=== PATIENT | male | born 1950 | race Caucasian/White ===

== ENCOUNTER 2018-02-01 06:11 | Inpatient (IN) ==
--- NOTE | 2018-01-26 09:50 | Anesthesiology Consultation ---
Date of Service January 26, 2018 Assessment & Plan (1) Encounter for pre-operative examination: Chart Review Chart Review: Acceptable Risk for Surgery and Patient NOT seen in Pre Admission Testing History Surgery Operation Date: 02/01/18 08:25 Proposed Procedures p Video Mediastinoscopy; - Nickolas Zarate MD, FACS s Left Thoracotomy with Possible Sleeve Resection, Possible Pneumonectomy - Nickolas Zarate MD, FACS Height/Weight Height: 6 ft Weight: 83.915 kg Allergies Allergy/AdvReac Type Severity Reaction Status Date / Time cat dander Allergy Severe Verified 01/24/18 15:38 pollen extracts Allergy Mild Verified 01/24/18 15:38 Medications Home Medications Medication Instructions Recorded Confirmed Last Taken ipratropium-albuterol [Combivent 1 puff INHALATION Q6H PRN 12/24/17 01/24/18 05:00 Respimat] Past Medical History Medical History COPD (chronic obstructive pulmonary disease) Environmental allergies Left lower lobe pulmonary nodule Pneumonia 2017 had pneumonia - chest xray and ct done found abnormality Seasonal allergies Past Surgical History Surgical History Hx of tonsillectomy (Acute) History of bronchoscopy 1 mo ago - Bx done - found positive for cancer History of varicose vein stripping Social History Smoking Status: Former smoker Smoking End Date: 10 weeks ago Hx Alcohol Use: No Hx Substance Use: No Testing Electrocardiogram Date: 12/21/17 Findings: + NSR @ (93) Short SD interval. Nonspecific ST and T wave abnormality. Chest X-Ray Date: 12/20/17 (Chest CT) There is an obstructing lesion at the level of the distal left mainstem bronchus with encasement of left upper lobe bronchus and total obstruction of left lower lobe bronchus. Left lower lobe atelectasis with areas of dilated mucus filled bronchi, and area of necrosis within the left lower lobe which measures 3.6 x5.5 cm. Satellite nodules in the lower left lung. Mediastinal and hilar adenopathy. Pulmonary Function Test Date: 12/22/17 Moderate obstructive pattern. No significant change with bronchodilator. Flow volume loops consistent with spirometric findings. Lung volumes decreased TLC. Moderately reduced diffusion to 56% predicted. Laboratory Results 12/15/17 WBC: 13.89 H/H: 13.4/41.4 PLATELETS: 416 *surgeon aware of elevated WBC count
[~2018-02-01 06:11] MED LIST: LR 15ML/HR IV SCH
[2018-02-01] MEDS ORDERED: PROPOFOL IV EMULSION 10 MG/ML 20 ML VIAL IV ONE (07:46)
[2018-02-01] MEDS ORDERED: GLYCOPYRROLATE 0.2 MG/ML VIAL ONE (07:46)
[2018-02-01] MEDS ORDERED: MIDAZOLAM HCL 1 MG/ML 2ML VIAL ONE (07:46)
[2018-02-01] MEDS ORDERED: fentaNYL citrate 100 MCG/2 ML VIAL ONE ×3 (07:46→12:54)
[2018-02-01] MEDS ORDERED: LIDOCAINE HCL 2% 2 ML VIAL/AMP(20MG/ML) INFIL ONE (07:46)
[2018-02-01] MEDS ORDERED: DEXAMETHASONE SOD INJ 4 MG/ML VIAL ONE (07:46)
[2018-02-01] MEDS ORDERED: NEOSTIGMINE METHYLSULFATE 5 MG/5 ML SYR ONE (07:46)
[2018-02-01] MEDS ORDERED: ONDANSETRON INJ 2 MG/ML 2 ML VIAL ONE (07:46)
[2018-02-01] MEDS ORDERED: BUPIVACAINE 0.5 % 5 MG/1 ML MPF 30ML VIAL ONE (08:41)
--- NOTE | 2018-02-01 08:45 | History & Physical Bridge Note ---
Date of Service February 01, 2018 History & Physical Bridge Note I have examined the patient, reviewed the History & Physical and in the interval since the performance of the History & Physical I have noted the following changes of clinical significance: no changes noted
[2018-02-01] MEDS ORDERED: fentaNYL citrate 100 MCG/2 ML VIAL IV PRN (08:48)
[2018-02-01] MEDS ORDERED: HYDROmorphone INJ 1 MG/ML SYRINGE IV PRN (08:48)
[2018-02-01] MEDS ORDERED: ATROPINE SULFATE 0.1 MG/ML 5ML SYR IV PRN (08:48)
[2018-02-01] MEDS ORDERED: ePHEDrine sulfate 50 MG/ML AMP IV PRN (08:48)
[2018-02-01] MEDS ORDERED: ONDANSETRON INJ 2 MG/ML 2 ML VIAL IV PRN ×2 (08:48→16:07)
[2018-02-01] MEDS ORDERED: BUPIVACAINE LIPOSOME 1.3% 266 MG/20 ML VIAL INFIL ONE (09:04)
[2018-02-01] MEDS ORDERED: SODIUM CHLORIDE 0.9% INJ 10 ML VIAL ONE (09:04)
[2018-02-01] MEDS ORDERED: SODIUM CHLORIDE 0.9% PF 50 ML VIAL ONE (09:29)
[2018-02-01] MEDS ORDERED: CLINDAMYCIN PHOS 300 MG/2 ML VIAL ONE ×3 (10:14→11:33)
[2018-02-01] MEDS ORDERED: ROCURONIUM BROMIDE 10 MG/ML 5 ML VIAL ONE (10:14)
[2018-02-01] MEDS ORDERED: CLINDAMYCIN PHOS 900 MG/6 ML VIAL IV SCH (10:47)
[2018-02-01] MEDS ORDERED: CLINDAMYCIN 600 MG/54 ML BAG IV SCH (12:17)
[2018-02-01] MEDS ORDERED: VASOPRESSIN 20 UNIT/ML VIAL ONE (12:26)
[2018-02-01] MEDS ORDERED: BACITRACIN INJ 50,000 UNIT VIAL ONE (12:54)
--- NOTE | 2018-02-01 13:29 | Post Operative Brief Note ---
Immediate Post Op Note v1 Date of Surgery February 01, 2018 Pre & Post Diagnosis Operation Date: 02/01/18 08:25 Pre-Op Diagnosis: Squamous Cell Carcinoma Left Mainstem Bronchus Post-Op Diagnosis: Squamous Cell Carcinoma Left Mainstem Bronchus Procedure Operation Date: 02/01/18 08:25 Actual Procedures p Video Mediastinoscopy; - Nickolas Zarate MD, FACS s Left Pneumonectomy - Nickolas Zarate MD, FACS Surgeon Nickolas Zarate MD, FACS Supervisor Floor Assembly KARSTEN Martinez Estimated Blood Loss 500 Findings Consistent with Post-Op Diagnosis Drains Méndez Catheter (16 Azeri, inserted by Paola Barker RN -patent and draining )
--- NOTE | 2018-02-01 14:10 | XRay Report ---
XR chest 1V portable HISTORY: 67 years-old Male POST OP, NEEDLE COUNT OFF, LOOKING FOT SUTURE NEEDLE postoperative exam. Possible retained foreign body COMPARISON: Chest radiograph 12/28/2017, PET CT 12/27/2017 TECHNIQUE: Right decubitus films of the chest and upper abdomen FINDINGS: Postoperative changes from left-sided pneumonectomy. Air within the left hemithorax is noted. Surgica l clips are seen about the left hilar distribution. No definite retained foreign body identified. Air -fluid levels within the bowel suggest ileus. No definite pneumoperitoneum identified. IMPRESSION: Postoperative changes compatible with left-sided pneumonectomy. No definite retained fore ign body identified. The above report was generated using voice recognition software. It may contain grammatical, syntax o r spelling errors. Electronically signed by: Jay Velasco M.D. 02/01/2018 2:09 PM
[2018-02-01] MEDS ORDERED: AMIODARONE / D5W 150 MG/100 ML BAG IV PRN (14:22)
[2018-02-01] MEDS ORDERED: MAGNESIUM SULFATE / D5W 1 GM/100 ML BAG IV PRN (14:44)
[2018-02-01] MEDS ORDERED: METOPROLOL TARTRATE 1 MG/ML VIAL IV PRN (14:45)
[2018-02-01 14:54] LABS: iSTAT Arterial Blood Gas HCO3 31 meg/L (19-24); iSTAT Carbon Dioxide 32 mEq/l (24-31)
--- NOTE | 2018-02-01 15:02 | XRay Report ---
SINGLE VIEW CHEST CLINICAL HISTORY: Status post left pneumonectomy FINDINGS: 2 AP, portable, upright chest radiographs are compared to study dated 02/01/2018 and 2017. Correlation is made with PET/CT dated 12/27/2017. The examination is significantly degraded by portable technique and patient rotation. The cardiomediastinal silhouette is unremarkable. The left lung is surgically absent. There is mild hyperexpansion of the left hemithorax, with mild volume loss in the right. Emphysematous change is noted in the right lung. No large pleural effusion is identifi ed. There is no right-sided pneumothorax. The skeletal structures appear osteopenic. The bony thorax is grossly intact. Subcutaneous emphysema is noted throughout the left chest wall and in the left low er neck. IMPRESSION: 1. The left lung is surgically absent. 2. There is mild hyperexpansion of the left hemithorax. 3. Subcutaneous emphysema is noted in the left lower neck and throughout the left chest wall. Electronically signed by: Murray Schaeffer M.D. 02/01/2018 3:01 PM
--- NOTE | 2018-02-01 15:04 | Anesthesiology Progress Note ---
Date of Service February 01, 2018 Anesthesia Post Procedure Vital Signs Vital Signs: Temp Pulse Pulse Resp BP BP Pulse Ox 02/01/18 14:55 96 H 26 H 128/57 L 100 02/01/18 14:45 97 H 17 115/54 L 100 02/01/18 14:35 96 H 19 116/58 L 94 02/01/18 14:27 36.0 C L 97 H 15 103/50 L 98 02/01/18 06:48 36.7 C 83 18 158/75 H 95 Pain Intensity Left Chest: Pain Intensity: 0 Notes Mental Status: alert / awake / arousable and participated in evaluation Patient Amnestic to Procedure: Yes Nausea / Vomiting: adequately controlled Pain: adequately controlled Airway Patency, RR, SpO2: stable & adequate BP & HR: stable & adequate Hydration State: stable & adequate Anesthetic Complications: no major complications apparent and Pt Satisfied with anesthetic care
[2018-02-01] MEDS ORDERED: OXYCODONE HCL IR 5 MG TAB (IMMEDIATE RELEASE) PO PRN (16:07)
[2018-02-01] MEDS ORDERED: IPRATROPIUM BROMIDE/ALBUTEROL respimat INH INH PRN (16:07)
[2018-02-01] MEDS ORDERED: MoRPHine SULFATE 2 MG/ML CARP IV PRN (16:07)
[2018-02-01] MEDS: METOCLOPRAMIDE HCL INJ 5 MG/ML 2 ML VIAL IV SCH ×2 (16:28→23:52)
[2018-02-01] MEDS ORDERED: D5W AND 1/2NSS 1,000 ML IV SCH ×2 (16:30→21:12)
[2018-02-01] MEDS: KETOROLAC TROMETHAMINE 15 MG/ML VIAL IV SCH ×2 (18:25→23:52)
--- NOTE | 2018-02-01 19:19 | Critical Care Consultation ---
Date of Consultation February 01, 2018 Assessment & Plan (1) Encounter for pre-operative examination: Impression: 1. Squamous cell lung cancer, stage IIIa, status post pneumonectomy left- sided. With mediastinoscopy. 2. History of COPD. Gold level is undetermined. 3. Asymptomatic, no history of GERD, no dysphagia, only dysphonia. Plan: 1. Patient is pain-free, will continue to monitor. 2. Aspiration precautions. 3. Treatment of GERD empirically. 4. IV fluid. 5. Oral intake once feasible. 6. DVT prophylaxis. 7. Monitor in the ICU. Thank you for your kind referral, discussed with the staff on rounds. CCM 35 minutes. History of Present Illness Reason for Consultation: Postpneumonectomy Requesting Physician: Dr. Zarate. Attending Physician: Nickolas Zarate MD, [facility] History of Present Illness Dear Dr. Zarate: Thank you for your kind referral of Mr. Julien to critical care service. This is 67-year-old gentleman with history of smoking in the past, presented previously with left lower lobe bronchus lesion, found to be squamous cell lung cancer. The patient underwent pneumonectomy with mediastinoscopy as well. The patient had the procedure uneventful, was extubated postprocedure. He was maintaining his O2 saturation at 100% and he was pain-free and transferred to the ICU for monitoring. When I interviewed the patient, he denies any chest pain, no abdominal pain, no nausea or vomiting, he is in upright position, he does not have any history of heartburn or GERD, he denies any epigastric pain. No pain even at the surgical site but he has been nerve block. He denies any swelling in his lower extremities, he did have reported weight loss previously up to 15 pounds. The rest of his review of system was unremarkable. No sore throat but he does have minimal dysphonia. No dysphagia no rhinorrhea no constitutional symptoms. Allergies Allergy/AdvReac Type Severity Reaction Status Date / Time cat dander Allergy Severe Verified 02/01/18 06:45 pollen extracts Allergy Mild Verified 02/01/18 06:45 Home Medications Home Medications Medication Instructions Recorded Confirmed Type ipratropium-albuterol [Combivent 1 puff INHALATION Q6H PRN 12/24/17 02/01/18 History Respimat] Patient History Medical History COPD (chronic obstructive pulmonary disease) Environmental allergies Left lower lobe pulmonary nodule Pneumonia 2017 had pneumonia - chest xray and ct done found abnormality Seasonal allergies Surgical History Hx of tonsillectomy (Acute) History of bronchoscopy 1 mo ago - Bx done - found positive for cancer History of varicose vein stripping Social History Current Living Situation: Significant Other Other Information That Helps Us Care for You: No Feels Safe at Home: Yes Safety Concerns: Feels Safe At This Time Smoking Status: Former smoker Smoking End Date: 10 weeks ago Hx Alcohol Use: No Hx Substance Use: No Beliefs That Will Affect Care: None Preferred Language: Greek Communication Ability: Effective Review of Systems As above review of system otherwise was unremarkable. Physical Exam 2 Vital Signs (Past 24 Hours): Last Vital Signs Temp 36.5 C 02/01/18 16:07 Pulse 99 H 02/01/18 16:07 Resp 16 02/01/18 16:07 BP 112/53 L 02/01/18 16:07 Pulse Ox 100 02/01/18 16:07 Physical Exam: Vital signs are stable, O2 sats 100%, S1-S2, regular rate and rhythm, no breath sounds on the left, clear lung lawson on the right right, abdomen is benign, no edema. Surgical site is covered with sterile surgical dressing. Neurologically he is intact. Results & Data Laboratory Results ABG was reviewed which showed PO2 more than 400. Diagnostic Findings Chest x-ray showed absence of the left lung and right lung is clear.
[2018-02-01] MEDS ORDERED: PANTOprazole 40 MG in SYRINGE 0 ML IV SCH (20:00)
[2018-02-01] MEDS: DOCUSATE SODIUM 100 MG CAP PO SCH (20:20)
[2018-02-01] MEDS: D5W AND NSS 1,000 ML IV SCH (21:19)
[2018-02-01] MEDS: ACETAMINOPHEN 1,000 MG/100 ML VIAL IV SCH (22:14)
--- NOTE | 2018-02-01 23:08 | Operative Report ---
DATE OF OPERATION: 02/01/2018 PREOPERATIVE DIAGNOSIS: Squamous cell carcinoma, left distal mainstem bronchus with obstruction of an atelectasis of left lower lobe. POSTOPERATIVE DIAGNOSIS: Squamous cell carcinoma, left distal mainstem bronchus with obstruction of an atelectasis of left lower lobe. PROCEDURE: 1. Video mediastinoscopy with biopsy. 2. Left limited anterior thoracotomy with left pneumonectomy. SURGEON: Dr. Nickolas Zarate MD POLISH MAKER: KARSTEN Hwang. (Mr. Jeffries was present for the entire case and was instrumental and being acute care assistant and closed the skin incisions at the conclusion.) ANESTHESIA: General anesthesia with single lumen intubation for the mediastinoscopy and a double lumen tube for the thoracotomy with pneumonectomy. SPECIFICS OF PROCEDURE: This is a 67-year-old male who has a history of cigarette smoking who had a persistent cough and was found to have a obstructing mass in his left lower lobe bronchus. I took the patient to the operating room about 4 weeks ago and did a bronchoscopy. I also performed an endobronchial ultrasound with biopsy to stage his mediastinum and attempted to open up his obstructed left main stem bronchus with a cryoprobe. I biopsied multiple lymph nodes and in fact biopsied both the right and left level 2, level 4 and the level 10 as well as level 7. Did not see evidence of metastatic disease. We obtained biopsies on most of these lymph node stations. He did well and was planning a hunting trip and really did not want me to tell him with the results of the biopsy before his trip.. We did prove that this obstructing lesion in his left mainstem bronchus was indeed a squamous cell carcinoma. After a long discussion, we elected to proceed with a mediastinoscopy and if confirmed that there was no evidence of mediastinal lymph node metastases, proceed with a pneumonectomy. On February 01, 2018, the patient was brought to the operating room and underwent a video mediastinoscopy. I biopsied the right level 2, right level 4 and did an extensive biopsy level 7 as well as a left level 4. Really did have any hypermetabolic activity level 7, but I removed a tremendous amount of tissue here. I also biopsied the left level 4, which had some hypermetabolic activity. Frozen sections on multiple lymph nodes showed no evidence of carcinoma. The decision was made to then proceed with a pneumonectomy. The patient was then turned in the right lateral decubitus position. Left chest was prepped and draped in usual sterile fashion. We had given prophylactic antibiotics and called a timeout before the mediastinoscopy, recalled timeout again and gave another re-bolus of prophylactic antibiotics before the thoracotomy. Incision was then made in the anterior thoracotomy about the fifth interspace, but kept the anterior to the latissimus dorsi muscle. Upon entering the chest, I was a bit surprised to see how adherent the lower lobe was. I expected some of this medially, but this was extensive laterally and made it a bit difficult. It was difficult to decompress the lung. I did free this up bluntly with my hand and we did get into some bleeding, although I packed this with a pack and this bleeding stopped. I then went into and dissected out the level 5 and level 6 lymph nodes. I then was able to get around the artery without difficulty and fired an Endo-CHALINO stapler. I was then able to get around the superior pulmonary vein and fired an Endo-CHALINO stapler. This freed up things nicely but we were still quite stuck inferiorly. I finally went down and initially went subpleural a bit in order to free this up and then freed up the lung and the thickened pleura all the way down to the costophrenic angle and divided this with the cautery. Upon coming back, we then freed up the inferior pulmonary ligament, which was quite thickened. We took this out with the specimen and I assumed the level 8 and 9 nodes were in this. We then freed up the inferior pulmonary vein and fired Endo-CHALINO stapler across this and all was left was the bronchus. I did free up and took off some level 10 and level 11 lymph nodes. I then fired a TA 45 across this. This entire specimen was then handed off is very difficult to get out to the small thoracotomy incision, but were able to do. I did this after wrapping it this with a laparotomy pack. I then started meticulous hemostasis with the Aquamantys and a few areas of pleura that were removed were thick and but this all looked quite good actually. The only issue was the bronchus. I felt it was a bit long. I cleaned it all the way back to the israel, took another level 7 node and then I fired a TA 45 across this right at the israel and then used a knife to remove this. This appeared much better than the initial staple line where there were some lymph node involvement. Frozen section of the original staple line suggested some dysplasia in one small area; however, I felt that removing the rest would work out well. I did seymour this with ink. I then irrigated up to the chest with warm antibiotic solution and we saw no evidence of air leak. We did an Exparel block by mixing 266 mg of Exparel, 250 mL of normal saline and 30 mL of 0.25% Marcaine. This was used to inject the incision as well as to an intercostal block from the 2nd to the 11th rib intrathoracically. I was quite happy that there was really no bleeding. I used a #1 Maxon and put a single pericostal suture posteriorly and one anteriorly and then brought this together. The 0 Vicryl was used to reapproximate the serratus muscle. The 3-0 Vicryl was used to close the deeper subcutaneous tissues and 4-0 Monocryl was used in running subcuticular fashion to approximate the wound edges. He tolerated it well and was extubated in the room. I attest to the content of the Intraoperative Record and any orders documented therein. Any exceptions are noted below. KRISTINA
[2018-02-02 04:30] LABS: Hematocrit (blood only) 27.2 % (42-52); Hemoglobin 8.9 g/dL (14.0-18.0); Mean Corpuscular Volume 81.9 fL (80-100); Platelet Count 395 K/uL (130-400); RDW Coefficient of Variation 15.1 % (11.5-14.5); RDW Standard Deviation 45.5 fL (36.4-46.3); Red Blood Count 3.32 M/uL (4.7-6.1); White Blood Count 22.27 K/uL (4.8-10.8)
[2018-02-02 04:36] LABS: Mean Corpuscular Hgb Conc 32.7 g/dL (32-36)
[2018-02-02 04:43] LABS: Prothrombin Time 10.8 Seconds (9.0-12.0)
[2018-02-02 04:55] LABS: BUN Creatinine Ratio 13.4 (10-20); Calcium 8.2 mg/dl (8.5-10.1); Creatinine Clr Calc Pharmacy 24.2 ml/min; Potassium 4.7 mmol/L (3.5-5.1)
[2018-02-02 04:59] LABS: Basophils # (auto) 0.01 K/uL (0-0.2); Immature Granulocytes # (auto) 0.14 K/uL (0.00-0.02); Immature Granulocytes % (auto) 0.6 %; Lymphocytes # (auto) 1.47 K/uL (1.2-3.4); Lymphocytes % (auto) 6.6 %; Monocytes # (auto) 1.59 K/uL (0.11-0.59); Monocytes % (auto) 7.1 %; Neutrophils # (auto) 19.06 K/uL (1.4-6.5); Neutrophils % (auto) 85.7 %; Rouleaux 1+
[2018-02-02] MEDS ORDERED: CLINDAMYCIN PHOS 900 MG/6 ML VIAL IV SCH (06:00)
[2018-02-02] MEDS: ACETAMINOPHEN 1,000 MG/100 ML VIAL IV SCH ×3 (06:18→21:24)
[2018-02-02] MEDS: KETOROLAC TROMETHAMINE 15 MG/ML VIAL IV SCH (06:18)
[2018-02-02] MEDS ORDERED: SODIUM CHLORIDE 0.9% 1000ML 500 ML IV ONE (06:32)
--- NOTE | 2018-02-02 06:55 | Clinical Documentation Query ---
RA Hyman : CLINICAL DOCUMENTATION QUERIES QUERY 1 OF 2 EMR review demonstrates a BUN, creatinine, and estimated GFR of 42 mg/dl, 3.16 mg/dl, and 19 ml/min. No documented history of CKD available to this reader or mention of this abnormality as an acute problem. As appropriate, consider the diagnostic options as suggested below and/or document the appropriate response. Thank you. In your clinical opinion is this patient being managed for: ( ) Chronic kidney disease stage 4 OR ( ) MAGALI (X ) Not Agree ( ) Other explanation of clinical findings (No explanation is considered a No Response) ( ) Unable to determine ( ) Need to Discuss (Phone CDS or qliq) (No discussion is considered a No Response) The medical record reflects the following clinical findings, treatment, and risk factors. Clinical Indicators: As above Treatment: IVF, chemistries Risk Factors: Age, smoking, surgery, acute blood loss. QUERY 2 OF 2 EBL for the procedure was 500 ml's. Additionally, net I/O is positive at this time for 1,782 ml's. POD #1, H&H was 8.9 g/dl and 27.2%. As appropriate, consider capture of this clinical information as suggested below. Thank you. In your clinical opinion is this patient being managed for: ( X ) Acute blood loss and hemodilutional anemia ( ) Not Agree ( ) Other explanation of clinical findings (No explanation is considered a No Response) ( ) Unable to determine ( ) Need to Discuss (Phone CDS or qliq) (No discussion is considered a No Response) The medical record reflects the following clinical findings, treatment, and risk factors. Clinical Indicators: As above Treatment: Hematology, I/O Risk Factors: Acute perioperative blood losses. Please clarify and document your clinical opinion in the progress notes and discharge summary. Terms such as "probable", "suspected", "likely", "questionable", "possible", or "still to be ruled out" are acceptable. IF IN AGREEMENT, YOU MUST DOCUMENT ABOVE DIAGNOSTIC STATEMENT IN DAILY PROGRESS NOTES AND DISCHARGE SUMMARY. This document is not part of the patient' s record. Thank You, Uriel Connor, RN [phone] [facility]ITALHan
--- NOTE | 2018-02-02 07:35 | XRay Report ---
XR chest 1V portable HISTORY: left pneumonectomy COMPARISON: Chest 02/01/2018. FINDINGS: The left lung is surgically absent. There is gas occupying the left hemithorax. Left chest wall subcutaneous emphysema persists. There is volume loss within the left hemithorax due to the pneu monectomy changes. There appears to be a small amount of pneumomediastinum, unchanged. The heart is n ormal in size. No right-sided pneumothorax. Mild interstitial thickening within the right lung base. No new focal lung consolidations. Suspect a trace left pleural effusion. IMPRESSION: 1. No significant change compared to the prior study. 2. Status post left pneumonectomy. There is gas occupying the left hemothorax. 3. Subcutaneous emphysema and trace pneumomediastinum persists. This suggests postoperative change. Electronically signed by: Henri Diaz M.D. 02/02/2018 7:33 AM
[2018-02-02] MEDS: D5W AND NSS 1,000 ML IV SCH (07:46)
[2018-02-02] MEDS: METOCLOPRAMIDE HCL INJ 5 MG/ML 2 ML VIAL IV SCH (07:51)
[2018-02-02] MEDS ORDERED: GLUCOSE 40% GEL 15 GM TUBE PO PRN (08:51)
[2018-02-02] MEDS ORDERED: GLUCAGON FOR INJ 1 MG VIAL SQ PRN (08:51)
[2018-02-02] MEDS ORDERED: GLUCOSE 10 TABS/TUBE PO PRN (08:51)
[2018-02-02] MEDS ORDERED: DEXTROSE 50% 50 ML SYRINGE IV PRN (08:51)
[2018-02-02] MEDS ORDERED: CARBOHYDRATES FOR HYPOGLYCEMIA PO PRN (08:51)
[2018-02-02] MEDS ORDERED: ENOXAPARIN INJ 30 MG/0.3 ML SYR SQ SCH (09:00)
[2018-02-02] MEDS: DOCUSATE SODIUM 100 MG CAP PO SCH ×2 (09:14→21:23)
[2018-02-02] MEDS: PANTOprazole 40 MG TAB PO SCH ×2 (09:14→21:24)
[2018-02-02] MEDS ORDERED: INSULIN HUMAN REGULAR SC SCH (11:30)
[2018-02-02] MEDS: METOCLOPRAMIDE HCL 10 MG TABLET PO SCH ×3 (12:26→21:23)
--- NOTE | 2018-02-02 12:50 | Nephrology Consultation ---
Date of Consultation February 02, 2018 Assessment & Plan (1) Acute kidney injury: -- Anuric MAGALI. Ddx includes obstruction related to BPH and recent domingo catheter removal, dense ATN related to relative hypotension, or cortical necrosis related to NSAID therapy and relative hypotension. Volume status and electrolyte balance are acceptable. No acute indication for HD at this time -- Replace domingo catheter -- Renal US w/ arterial doppler has been ordered -- Monitor serial PRP and obtain urine for UA w/ microscopy -- Avoid NSAIDs and other potentially nephrotoxic medications (2) Hyponatremia: -- Mild, asymptomatic. Likely related to hyperglycemia. Will monitor (3) Squamous cell lung cancer: (4) S/P pneumonectomy: History of Present Illness Reason for Consultation: MAGALI Attending Physician: Nickolas Zarate MD, FACS History of Present Illness Mr. Julien is a 67 year old white male who is seen at the request of Dr. Flores for evaluation of MAGALI. Medical records in the hospital EMR were reviewed and are summarized as follows: Mr. Julien has enjoyed relatively good health. He has a h/o tobacco use and COPD but denies HTN, ASCVD or renal disease. He has never had any urologic complications such as BPH. In 12 23 Mr. Julien was diagnosed w/ recurrent pneumonia. Evaluation revealed LLL collapse. Bronchoscopy w/ biopsy was positive for squamous cell CA. Mr. Julien underment mediastinoscopy w/ L pneumonectomy yesterday. Medical records show that SBP was 11 - 150 mmHG throughout the operation. Post-op patient required three doses of Toradol for pain management. Following removal of his Domingo catheter Mr. Julien has been anuric. Creatinine has risen from baseline 1.2 (11/23) to 3.1. Allergies Allergy/AdvReac Type Severity Reaction Status Date / Time cat dander Allergy Severe Verified 02/01/18 06:45 pollen extracts Allergy Mild Verified 02/01/18 06:45 Home Medications Home Medications Medication Instructions Recorded Confirmed Type ipratropium-albuterol [Combivent 1 puff INHALATION Q6H PRN 12/24/17 02/01/18 History Respimat] Patient History Medical History COPD (chronic obstructive pulmonary disease) Environmental allergies Left lower lobe pulmonary nodule Pneumonia 2017 had pneumonia - chest xray and ct done found abnormality Seasonal allergies Surgical History Hx of tonsillectomy (Acute) History of bronchoscopy 1 mo ago - Bx done - found positive for cancer History of varicose vein stripping Social History Current Living Situation: Significant Other Other Information That Helps Us Care for You: No Feels Safe at Home: Yes Safety Concerns: Feels Safe At This Time Smoking Status: Former smoker Smoking End Date: 10 weeks ago Hx Alcohol Use: No Hx Substance Use: No Beliefs That Will Affect Care: None Preferred Language: [place] Communication Ability: Effective Review of Systems Constitutional: no fever Respiratory: no dyspnea Cardiovascular: no chest pain Gastrointestinal: no abdominal pain and no diarrhea/loose stools Genitourinary (Male): + difficulty urinating Physical Exam 2 Vital Signs (Past 24 Hours): Last Vital Signs Temp 36.3 C L 02/02/18 04:00 Pulse 86 02/02/18 05:00 Resp 22 02/02/18 05:00 BP 108/68 02/02/18 05:00 Pulse Ox 100 02/02/18 05:00 Eyes: PERRL, conjunctivae normal, anicteric sclerae Neck: trachea midline, no thyromegaly Respiratory: normal respiratory effort (CTA on R) Cardiovascular: RRR, no murmur, no edema Extremities: no edema Gastrointestinal (Abdomen): normal bowel sounds, soft, nontender, no hepatosplenomegaly Results & Data Laboratory Results Laboratory Tests 02/02/18 02/02/18 02/02/18 04:11 04:11 04:11 WBC 22.27 H Hgb 8.9 L Hct 27.2 L Plt Count 395 INR 1.0 Sodium 132 L Potassium 4.7 Chloride 100 Carbon Dioxide 21 BUN 42 H Creatinine 3.16 H Diagnostic Findings 02/02 CXR: 1. No significant change compared to the prior study. 2. Status post left pneumonectomy. There is gas occupying the left hemothorax. 3. Subcutaneous emphysema and trace pneumomediastinum persists. This suggests postoperative change.
[2018-02-02 15:04] LABS: Appearance Urine Turbid (Clear); Bacteria Urine Automated 1+ (Negative); Color Urine Dark Yellow; Glucose Urine UA Negative (Negative); Ketones Urine Trace (Negative); Leukocyte Esterase Urine Negative (Negative); Nitrite Urine Negative (Negative); Protein Urine 1+ (Negative); Specific Gravity Urine 1.023 (1.000-1.030); Urobilinogen Urine Negative (Negative); WBC Urine Automated >30 /hpf (0-5)
[2018-02-02 15:32] LABS: Bilirubin Urine Negative (Negative); Ictotest Urine Negative (Negative)
[2018-02-02 15:34] LABS: Cast Urine Automated 0 /lpf (0-5); Sperm Urine Present (None Prsent)
[2018-02-02 15:36] LABS: Calcium 8.2 mg/dl (8.5-10.1); Creatinine Clr Calc Pharmacy 20.2 ml/min; Est GFR (African American) 17.7; Est GFR (Non-African American) 15.3; Magnesium 2.1 mg/dl (1.8-2.4); Potassium 4.4 mmol/L (3.5-5.1)
[2018-02-02] MEDS: SODIUM CHLORIDE 0.9% 1000ML 1,000 ML IV SCH (16:32)
--- NOTE | 2018-02-02 16:37 | Critical Care Progress Note ---
Date of Service February 02, 2018 Assessment & Plan (1) Encounter for pre-operative examination: Impression: 1. Squamous cell lung cancer, stage IIIa, status post pneumonectomy left- sided. With mediastinoscopy. 2. History of COPD. Gold level is undetermined. 3. Syncope x2, orthostatic, positional, likely related to volume shift after pneumonectomy. 4. Acute on chronic kidney insufficiency. 5. Glucose intolerance. Plan: 1. Patient is pain-free, will continue to monitor. 2. Aspiration precautions. 3. Treatment of GERD empirically. 4. Change IV fluid to normal saline and eliminate D5W. 5. Oral intake. 6. DVT prophylaxis with heparin instead of Lovenox given his GFR.. 7. Glucose control, appreciate pharmacy input. 8. Bedrest. 9. Consult Dr. Mcmillan from nephrology, appreciate his input. 10. Agree with Méndez catheter. 11. Urine lites. 12. Fluid challenge cautiously. Thank you for your kind referral, discussed with the staff on rounds. CCM 35 minutes. Subjective The patient had 2 episodes of syncope yesterday and today every time he was in upright position, this appeared to be affecting the patient every time he is trying to be in upright position which represent orthostatic versus blood flow shift post pneumonectomy. Denies any cough, shortness of breath, no pain, no nausea or vomiting reported, no heartburn, no dysphagia, and no dysphonia either. Physical Exam 2 Vital Signs (Past 24 Hours): Last Vital Signs Temp 36.3 C L 02/02/18 08:02 Pulse 85 02/02/18 15:01 Resp 35 H 02/02/18 15:01 BP 131/66 02/02/18 15:01 Pulse Ox 95 02/02/18 15:01 Physical Exam: Subcutaneous emphysema was noted, S1-S2 regular rate and rhythm , O2 sat is 95% on nasal cannula, no breath sounds on the left, incision from CME noted, abdomen is benign, no edema. Results & Data Laboratory Results BUN/creatinine were noted to be elevated, increasing from a month ago, WBC is also elevated due to recent steroids use. Diagnostic Findings Chest x-ray repeated today which showed absence of the left lung post surgically , subcu emphysema, the right lung with minimal pulmonary vascular congestion.
[2018-02-02] MEDS: INSULIN ASPART 100 UNITS/ML 3 ML PEN SC SCH ×2 (16:40→20:31)
--- NOTE | 2018-02-02 17:44 | Progress Note ---
DATE: 02/02/2018 Mr. Julien was seen today, 1 day after a left thoracotomy with pneumonectomy for a very large necrotic tumor in the left lower lobe. Our biggest problem now is that patient is in renal failure. I pulled his Méndez catheter out late last night, he was not making much urine, but I was not too concerned because we are trying to keep him dry in light of the fact he had a pneumonectomy. Blood pressure really was not that bad and he was awake and alert and at 100% saturation on room air. I had also kept him n.p.o. as I did not want to risk aspiration until he was fully awake. This morning, I started to let him take p.o. when he is taking p.o. well. Unfortunately, he really did not make any urine. We put the Méndez catheter back in and got about 70 mL. His creatinine jumped from 1.2 two months before surgery to 3.14 this morning and 3.79 this afternoon. I have discussed this case in detail with Dr. Flores. I had a long talk with the patient about our findings. He has a very large cancer. It appears we do have clean resection margins. I did an extensive lymph node dissection and we have to wait and see what that shows. His left lower lobe is necrotic. The patient's chest is really not filling up with blood. His left lung sounds good. He has got significant amount of subcutaneous emphysema; however, this is due to him coughing with the air in his left chest. In fact, I think his volume has decreased a bit since yesterday. His hemoglobin was 8.9 which is bit surprising given he was 13, he really did not lose much blood. White count of 22,270, which is not surprising. I had a long talk with the patient. He looks quite good. He is eating and drinking well. My hope is that he will recover his renal function. His blood sugars have also been quite high. I discussed this with Dr. Flores. Dr. Edwardo Perez from nephrology had seen the patient, his advice is greatly appreciated. It appears to me that the patient probably has had diabetes which has been untreated for a while. We really did not have hypotension to the point where I felt that he should develop ATN. Anyway, he looks good clinically. I am just concerned about his kidneys. ASSESSMENT AND PLAN: Postop day #1, status post mediastinoscopy and left thoracotomy with pneumonectomy. The patient is hoarse. He is not aspirating. He does not really have a cough which pleases him a great deal, as he has been coughing unrelentingly for the last few months. I did do a mediastinoscopy and I did biopsy 1 level 4 node, but did not use the cautery. I am hopeful that there is not an issue with his recurrent laryngeal nerve; however, this hoarseness may also be due to his subcutaneous emphysema, but actually I think looks a bit better than he did last night. We will hold him in the ICU for another day. We will see how, I am hopeful his kidney function will improve.
--- NOTE | 2018-02-02 21:42 | Ultrasound Report ---
Study: Duplex renal arterial Doppler HISTORY:. Renal insufficiency. FINDINGS: Normal velocity characteristics of the right renal arterial vasculature. Impedance characte ristics are unremarkable. Left kidney is not well seen due to overlying bowel content. IMPRESSION:: 1. Normal arterial Doppler right kidney. 2. Nonvisualization left kidney due to overlying bowel content. Electronically signed by: Chu Vines M.D. 02/02/2018 9:41 PM
--- NOTE | 2018-02-02 21:44 | Ultrasound Report ---
US renal/blad retro comp HISTORY: Renal insufficiency anuria, MAGALI COMPARISON: None. FINDINGS: Right kidney: Maximum dimension 12 cm. No evidence for hydronephrosis. Normal corticomedullary differ entiation and cortical thickness. Left kidney: Not seen due to overlying bowel content. The Bladder: Decompressed due to presence of Méndez catheter IMPRESSION: 1. Normal right renal ultrasound. 2. Nonvisualization left kidney due to overlying bowel content. The above report was generated using voice recognition software. It may contain grammatical, syntax or spelling errors. Electronically signed by: Chu Vines M.D. 02/02/2018 9:43 PM
[2018-02-03] MEDS: SODIUM CHLORIDE 0.9% 1000ML 1,000 ML IV SCH ×2 (01:37→11:49)
[2018-02-03 04:25] LABS: Hematocrit (blood only) 23.9 % (42-52); Hemoglobin 7.7 g/dL (14.0-18.0); Mean Corpuscular Hgb Conc 32.2 g/dL (32-36); Mean Corpuscular Volume 82.4 fL (80-100); Mean Platelet Volume 8.5 fL (7.4-10.4); Platelet Count 371 K/uL (130-400); RDW Coefficient of Variation 15.3 % (11.5-14.5); RDW Standard Deviation 46.2 fL (36.4-46.3); White Blood Count 19.12 K/uL (4.8-10.8)
[2018-02-03 05:16] LABS: BUN Creatinine Ratio 14.8 (10-20); Calcium 7.8 mg/dl (8.5-10.1); Creatinine Clr Calc Pharmacy 23.5 ml/min; Est GFR (African American) 21.2; Est GFR (Non-African American) 18.3; Potassium 4.2 mmol/L (3.5-5.1)
[2018-02-03] MEDS: ACETAMINOPHEN 1,000 MG/100 ML VIAL IV SCH ×3 (05:35→21:27)
[2018-02-03 06:19] LABS: Estimated Average Glucose 137 mg/dl
[2018-02-03] MEDS: HEPARIN SOD 5,000 UNIT/0.5 ML VIAL SQ SCH ×3 (07:54→21:26)
[2018-02-03] MEDS: INSULIN ASPART 100 UNITS/ML 3 ML PEN SC SCH ×4 (07:55→20:58)
[2018-02-03] MEDS: PANTOprazole 40 MG TAB PO SCH ×2 (07:55→21:00)
[2018-02-03] MEDS: DOCUSATE SODIUM 100 MG CAP PO SCH ×2 (07:55→21:01)
[2018-02-03] MEDS: METOCLOPRAMIDE HCL 10 MG TABLET PO SCH ×4 (07:55→21:02)
[2018-02-03] MEDS ORDERED: LACTULOSE SYRUP 20 GM/30 ML UDC PO PRN (08:11)
--- NOTE | 2018-02-03 08:55 | XRay Report ---
XR chest 1V portable HISTORY: 67 years-old Male pneumonectomy follow-up study in a patient with recent left-sided pneumon ectomy COMPARISON: Chest radiograph 01/25/2018 TECHNIQUE: Portable AP view of the chest FINDINGS: Cardiac silhouette is unchanged. Increasing extensive subcutaneous emphysema about the chest and neck , left greater than right. Postoperative changes of the left lung compatible with pneumonectomy. Trac e pneumomediastinum again noted. There is increased opacification about the mid and lower left hemith orax with suggested small left pleural effusion. Subsegmental right basilar atelectasis. Degenerative changes of the shoulders and spine. IMPRESSION: 1. Postoperative changes compatible with left-sided pneumonectomy. Increased opacification of the mid and lower left hemithorax from comparison study suggests pleural fluid. 2. Increased extensive subcutaneous emphysema of the chest and neck, left greater than right with unc hanged trace pneumomediastinum. The above report was generated using voice recognition software. It may contain grammatical, syntax o r spelling errors. Electronically signed by: Jay Velasco M.D. 02/03/2018 8:53 AM
[2018-02-03] MEDS ORDERED: LACTULOSE SYRUP 30 GM/45 ML UDP PO PRN (10:10)
--- NOTE | 2018-02-03 10:56 | Progress Note ---
DATE: 02/03/2018 Mr. Julien is seen today on 02/03/2018, postop day #2 status post a pneumonectomy. I was quite concerned about the patient because his urine output was down and his creatinine had gone from being normal to well over 3. He is improved with gentle hydration. He is taking p.o. well. His creatinine has dropped today and he has been hemodynamically stable. I am still a bit concerned about him of course. We are still waiting for the path reports. I think he looks good and is still on room air. He has been up better and is not hypotensive as much and he does not have the postural hypotension he has had in the past. His blood pressure is better. Pulse rate is in the 80s. Saturations are 98% on room air. His right lung sounds good. He does have subcutaneous emphysema. The dressing for his left thoracotomy incision as well as his mediastinoscopy incision is clean. I am still concerned the patient is quite hoarse. The subcutaneous emphysema can sometimes contribute to this. He does have it in his neck. He has had a regular rate and rhythm of his heart. He does not have a significant rub. His belly is nice and soft. His sequential compression devices are in place. Reviewing his labs, his white count is down to 19,120 and I am surprised that his hemoglobin is 7.7. He started off with a hemoglobin of 13. A generous estimate was 500 mL of blood loss and he really has not filled his chest much at all. At any rate, I would not transfuse him at this point. We will continue to watch this. In reviewing his electrolytes, his sodium is 134, potassium is 4.2, chloride 103, bicarbonate is 25, BUN and creatinine have improved, he is 48 and 3.26, which is down from 3.79. Blood sugars have been better controlled at 168 or below. He is 133 this morning. Interestingly enough, his hemoglobin A1c is elevated at 6.4. Reviewed his chest x-ray and his left chest is filling as expected and he has had volume loss with some of the shift of his mediastinum to the left as expected. ASSESSMENT AND PLAN: Postoperative day #2 status post thoracotomy with left pneumonectomy for large squamous cell carcinoma. We will continue to manage him in the ICU. He is currently getting normal saline at 100 mL an hour. I will recheck him later today as I am concerned I do not want him to become fluid overloaded. Dr. Flores and I have discussed this in detail today. We will keep a close eye on him. His urine output has picked up considerably. He is putting out about 40 mL or more an hour.
--- NOTE | 2018-02-03 11:14 | Nephrology Progress Note ---
Date of Service February 03, 2018 Assessment & Plan (1) Acute kidney injury: -- MAGALI. Patient is now nonoliguric following Domingo catheter reinsertion. Renal US did not visualize L kidney due to overlying bowel gas. R kidney was negative for hydro and cortical thickness/echogenicity was unremarkable. Urinalysis w/ pyuria and bacteruria. Will obtain urine for culture. Continue to monitor serial renal panel -- Keep Domingo catheter in place -- Avoid NSAIDs and other potentially nephrotoxic medications (2) Hyponatremia: -- Mild, asymptomatic. Likely related to hyperglycemia. Will monitor (3) Squamous cell lung cancer: (4) S/P pneumonectomy: Subjective Mr. Julien was seen & examined in the ICU this morning. He reports that he is breathing comfortably. His domingo catheter was reinserted yesterday. He has had 700 cc UO overnight Physical Exam 2 Vital Signs (Past 24 Hours): Last Vital Signs Temp 36.4 C L 02/03/18 08:00 Pulse 85 02/03/18 06:01 Resp 22 02/03/18 06:01 BP 114/57 L 02/03/18 06:01 Pulse Ox 98 02/03/18 06:01 Eyes: PERRL, conjunctivae normal, anicteric sclerae Neck: trachea midline, no thyromegaly Respiratory: normal respiratory effort (CTA on R. Subcutaneous emphysema on L tracking up the neck) Cardiovascular: RRR, no murmur, no edema Extremities: no edema Gastrointestinal (Abdomen): normal bowel sounds, soft, nontender, no hepatosplenomegaly Results & Data Laboratory Results Laboratory Tests 02/02/18 02/03/18 02/03/18 14:25 04:11 04:11 WBC 19.12 H Hgb 7.7 L Hct 23.9 L Plt Count 371 Sodium 134 L Potassium 4.2 Chloride 103 Carbon Dioxide 25 BUN 48 H Creatinine 3.26 H D Urine Color Dark Yellow Urine Appearance Turbid H Urine pH 5.0 Ur Specific [place] 1.023 Urine Protein 1+ H Urine Glucose (UA) Negative Urine Ketones Trace H Urine Blood 2+ H Urine Nitrite Negative Ur Leukocyte Esterase Negative Urine WBC (Auto) >30 H Urine RBC (Auto) 5-10 H Urine Bacteria (Auto) 1+ H Diagnostic Findings 02/02 Renal US: 1. Normal right renal ultrasound. 2. Nonvisualization left kidney due to overlying bowel content. 02/02 Renal artery doppler: 1. Normal arterial Doppler right kidney. 2. Nonvisualization left kidney due to overlying bowel content.
--- NOTE | 2018-02-03 12:47 | Critical Care Progress Note ---
Date of Service February 03, 2018 Assessment & Plan (1) Encounter for pre-operative examination: Impression: 1. Squamous cell lung cancer, stage IIIa, status post pneumonectomy left- sided. With mediastinoscopy. 2. History of COPD. Gold level is undetermined. 3. Syncope x2, orthostatic, positional, likely related to volume shift after pneumonectomy. 4. Acute on chronic kidney insufficiency. 5. Glucose intolerance. Plan: 1. Patient is pain-free, will continue to monitor. 2. Aspiration precautions. 3. Treatment of GERD empirically. 4. Decrease normal saline to 50 mL an hour, to decrease hyperperfusion state. 5. Oral intake. 6. DVT prophylaxis with heparin instead of Lovenox given his GFR.. 7. Glucose is better controlled after removing D5W. 8. Bedrest and out of bed to chair only. Do not ambulate. 9. Consult Dr. Mcmillan from nephrology, appreciate his input. 10. Agree with Méndez catheter. 11. Daily labs. 12. Encourage oral intake. discussed with the staff on rounds. CCM 35 minutes. Subjective The patient had 2 episodes of syncope yesterday and today every time he was in upright position, this appeared to be affecting the patient every time he is trying to be in upright position which represent orthostatic versus blood flow shift post pneumonectomy. Denies any cough, shortness of breath, no pain, no nausea or vomiting reported, no heartburn, no dysphagia, and no dysphonia either. Today on February 03, 2018, the patient continued to be stable, subcu emphysema persistent, urine output is approximately 40 mL an hour, he is 3 L positive fluid balance, he is able to tolerate oral intake, he was able to sit in a chair but not ready to be ambulated, the patient was still orthostatic with drop in his blood pressure by 20 points upon standing up. No nausea or vomiting , no heartburn, no chest pain. Physical Exam 2 Vital Signs (Past 24 Hours): Last Vital Signs Temp 36.4 C L 02/03/18 08:00 Pulse 85 02/03/18 06:01 Resp 22 02/03/18 06:01 BP 114/57 L 02/03/18 06:01 Pulse Ox 98 02/03/18 06:01 Physical Exam: Vital signs remained stable, remains orthostatic, asymptomatic today, did not have any episodes of syncope, S1-S2, regular rate and rhythm, distant breath sounds but overlapped by subcu emphysema, abdomen is benign, no edema. Results & Data Laboratory Results Labs were reviewed, BUN and creatinine are going down. Diagnostic Findings Chest x-ray with persistent subcu emphysema, no infiltrate, mild pulmonary vascular congestion on the right.
[2018-02-03] MEDS ORDERED: CHLORASEPTIC 1.4% SOLN 180 ML BTL MT PRN (14:59)
[2018-02-04 04:40] LABS: Hematocrit (blood only) 25.5 % (42-52); Hemoglobin 8.1 g/dL (14.0-18.0); Mean Corpuscular Hgb Conc 31.8 g/dL (32-36); Mean Corpuscular Volume 82.5 fL (80-100); Mean Platelet Volume 8.7 fL (7.4-10.4); Platelet Count 381 K/uL (130-400); RDW Coefficient of Variation 15.3 % (11.5-14.5); RDW Standard Deviation 46.2 fL (36.4-46.3); Red Blood Count 3.09 M/uL (4.7-6.1); White Blood Count 13.86 K/uL (4.8-10.8)
[2018-02-04 05:04] LABS: Albumin Globulin Ratio 0.4 (0.9-2); Albumin Level 1.9 gm/dl (3.4-5.0); BUN Creatinine Ratio 19.1 (10-20); Bilirubin,Total 0.3 mg/dl (0.1-1); Calcium 7.9 mg/dl (8.5-10.1); Creatinine Clr Calc Pharmacy 35.4 ml/min; Est GFR (African American) 34.9; Est GFR (Non-African American) 30.1; Globulin 4.4 gm/dl (2.5-4.0); Potassium 3.7 mmol/L (3.5-5.1); Total Protein 6.3 gm/dl (6.4-8.2)
[2018-02-04] MEDS: HEPARIN SOD 5,000 UNIT/0.5 ML VIAL SQ SCH ×3 (06:19→21:04)
[2018-02-04] MEDS: ACETAMINOPHEN 1,000 MG/100 ML VIAL IV SCH (06:20)
[2018-02-04] MEDS: SODIUM CHLORIDE 0.9% 1000ML 1,000 ML IV SCH (06:22)
[2018-02-04] MEDS: INSULIN ASPART 100 UNITS/ML 3 ML PEN SC SCH ×4 (07:50→21:03)
[2018-02-04] MEDS ORDERED: ACETAMINOPHEN 1,000 MG/100 ML VIAL IV PRN (08:11)
[2018-02-04] MEDS: DOCUSATE SODIUM 100 MG CAP PO SCH ×2 (08:29→21:04)
[2018-02-04] MEDS: METOCLOPRAMIDE HCL 10 MG TABLET PO SCH ×4 (08:42→21:04)
[2018-02-04] MEDS: PANTOprazole 40 MG TAB PO SCH ×2 (08:42→21:04)
--- NOTE | 2018-02-04 10:32 | Progress Note ---
DATE: 02/04/2018 Mr. Julien was seen today. He is now 3 days status post a left pneumonectomy for a squamous cell carcinoma. The patient looks much improved. He has made his urine output that has picked up tremendously. He is on room air. His vital signs are stable. He has been ambulating. He is tolerating a house diet. He has had no arrhythmias. His creatinine has dropped down to 2.16. His BUN is down to 48. His hemoglobin is stable at 8.1. His white count has dropped to 13,860. He looks great. We are going to move him to the floor. He sounds very good on the right. I removed all of his dressings and his incisions are clean. We are going to discontinue his monitors, IV and moving to a regular room and allowing shower today. Depending on how he looks, I may let him go tomorrow or Wednesday. His final pathology is still pending. I did discuss this with our pathologist yesterday.
[2018-02-04] MEDS: ACETAMINOPHEN 325 MG TAB PO SCH ×2 (11:05→19:01)
--- NOTE | 2018-02-04 11:07 | Nephrology Progress Note ---
Date of Service February 04, 2018 Assessment & Plan (1) Acute kidney injury: -- MAGALI - recovery phase. Renal US did not visualize L kidney due to overlying bowel gas. R kidney was negative for hydro and cortical thickness/ echogenicity was unremarkable. Urinalysis w/ pyuria and bacteruria. Will obtain urine for culture. Continue to monitor serial renal panel and UO. Méndez catheter was removed this morning. -- Avoid NSAIDs and other potentially nephrotoxic medications (2) Hyponatremia: -- Mild, asymptomatic. Likely related to hyperglycemia. Will monitor (3) Squamous cell lung cancer: (4) S/P pneumonectomy: Subjective Mr. Julien was seen & examined in the ICU this morning. He reports that he is breathing comfortably. His Méndez catheter was removed this morning. He reports that he is voiding without difficulty Physical Exam 2 Vital Signs (Past 24 Hours): Last Vital Signs Temp 36.6 C 02/04/18 08:00 Pulse 78 02/04/18 08:13 Resp 18 02/04/18 08:00 BP 136/73 02/04/18 08:00 Pulse Ox 93 02/04/18 08:00 Eyes: PERRL, conjunctivae normal, anicteric sclerae Neck: trachea midline, no thyromegaly Respiratory: normal respiratory effort (CTA on R. Subcutaneous emphysema on L tracking up the neck) Cardiovascular: RRR, no murmur, no edema Extremities: no edema Gastrointestinal (Abdomen): normal bowel sounds, soft, nontender, no hepatosplenomegaly Results & Data Laboratory Results Laboratory Tests 02/04/18 02/04/18 04:18 04:18 WBC 13.86 H Hgb 8.1 L Hct 25.5 L Plt Count 381 Sodium 135 L Potassium 3.7 Chloride 107 Carbon Dioxide 24 BUN 41 H Creatinine 2.16 H D Glucose 112 H
--- NOTE | 2018-02-04 16:50 | Critical Care Progress Note ---
Date of Service February 04, 2018 Assessment & Plan (1) Encounter for pre-operative examination: Impression: 1. Squamous cell lung cancer, stage IIIa, status post pneumonectomy left- sided. With mediastinoscopy. 2. History of COPD. Gold level is undetermined. 3. Syncope x2, orthostatic, positional, likely related to volume shift after pneumonectomy. 4. Acute on chronic kidney insufficiency. 5. Glucose intolerance. Plan: 1. Patient is pain-free, will continue to monitor. 2. Aspiration precautions. 3. Treatment of GERD empirically. 4. Decrease normal saline to 50 mL an hour, to decrease hyperperfusion state. 5. Oral intake. 6. DVT prophylaxis with heparin instead of Lovenox given his GFR.. 7. Glucose is better controlled after removing D5W. 8. Physical therapy 9. IV fluids can be stopped if the patient oral intake is adequate. 10. May discontinue Méndez catheter. 11. Daily labs. 12. Agree with disposition plan. discussed with the staff on rounds. CCM 35 minutes. Subjective The patient had 2 episodes of syncope yesterday and today every time he was in upright position, this appeared to be affecting the patient every time he is trying to be in upright position which represent orthostatic versus blood flow shift post pneumonectomy. Denies any cough, shortness of breath, no pain, no nausea or vomiting reported, no heartburn, no dysphagia, and no dysphonia either. Today on February 03, 2018, the patient continued to be stable, subcu emphysema persistent, urine output is approximately 40 mL an hour, he is 3 L positive fluid balance, he is able to tolerate oral intake, he was able to sit in a chair but not ready to be ambulated, the patient was still orthostatic with drop in his blood pressure by 20 points upon standing up. No nausea or vomiting , no heartburn, no chest pain. Today on February 04, 2018, the patient remained stable, he is tolerating being in upright position, ambulated for short distance around the bed, denies any other symptoms, his subcu emphysema remains stable. Physical Exam 2 Vital Signs (Past 24 Hours): Last Vital Signs Temp 36.6 C 02/04/18 15:37 Pulse 76 02/04/18 15:37 Resp 18 02/04/18 15:37 BP 140/62 02/04/18 15:37 Pulse Ox 92 02/04/18 15:37 Physical Exam: Vital signs are stable, S1-S2 regular rate and rhythm, distant breath sounds right-sided, absence of breath sounds on the left, subcu emphysema , abdomen is benign, trace edema. Results & Data Laboratory Results Improvement in BUN/creatinine with IV gentle IV hydration. The rest of his labs are acceptable. Diagnostic Findings Chest x-ray showed as expected progressing of filling up of the left chest cavity after pneumonectomy. Small pulmonary vascular congestion noted on the right.
[2018-02-05] MEDS: ACETAMINOPHEN 325 MG TAB PO SCH ×3 (00:16→10:21)
[2018-02-05] MEDS: HEPARIN SOD 5,000 UNIT/0.5 ML VIAL SQ SCH (05:35)
[2018-02-05 06:10] LABS: Basophils # (auto) 0.03 K/uL (0-0.2); Basophils % (auto) 0.2 %; Eosinophils # (auto) 0.47 K/uL (0-0.5); Eosinophils % (auto) 2.5 %; Hematocrit (blood only) 28.9 % (42-52); Hemoglobin 9.2 g/dL (14.0-18.0); Immature Granulocytes # (auto) 0.22 K/uL (0.00-0.02); Immature Granulocytes % (auto) 1.2 %; Lymphocytes # (auto) 1.47 K/uL (1.2-3.4); Lymphocytes % (auto) 7.9 %; Mean Corpuscular Volume 82.6 fL (80-100); Mean Platelet Volume 8.6 fL (7.4-10.4); Monocytes # (auto) 1.34 K/uL (0.11-0.59); Monocytes % (auto) 7.2 %; Neutrophils # (auto) 14.98 K/uL (1.4-6.5); Platelet Count 469 K/uL (130-400); RDW Coefficient of Variation 15.4 % (11.5-14.5); RDW Standard Deviation 45.5 fL (36.4-46.3); White Blood Count 18.51 K/uL (4.8-10.8)
[2018-02-05 06:19] LABS: Mean Corpuscular Hgb Conc 31.8 g/dL (32-36)
[2018-02-05 06:28] LABS: BUN Creatinine Ratio 18.5 (10-20); Calcium 8.2 mg/dl (8.5-10.1); Creatinine Clr Calc Pharmacy 42.3 ml/min; Est GFR (African American) 43.2; Est GFR (Non-African American) 37.3; Potassium 3.9 mmol/L (3.5-5.1)
--- NOTE | 2018-02-05 08:12 | XRay Report ---
SINGLE VIEW CHEST CLINICAL HISTORY: Status post pneumonectomy. FINDINGS: An AP, portable, upright chest radiograph is compared to study dated 02/03/2018 and correla merari with PET/CT dated 12/27/2017. The examination is degraded by portable technique and patient rotat ion. The cardiomediastinal silhouette is normal as visualized but partially obscured. Again seen are postoperative changes from left-sided pneumonectomy. Fluid partially fills the left pleural space. T he right lung appears clear noting emphysematous change. There is no right-sided pneumothorax. The [place] thorax is grossly intact. Extensive subcutaneous emphysema is again throughout the chest wall, lef t greater than right. IMPRESSION: 1. Again seen are postoperative changes from left-sided pneumonectomy. There is increasing pleural fl uid within the left hemithorax. 2. Extensive subcutaneous emphysema throughout the chest wall has also increased from yesterday. 3. The right lung appears clear. Electronically signed by: Murray Schaeffer M.D. 02/05/2018 8:11 AM
[2018-02-05] MEDS: PANTOprazole 40 MG TAB PO SCH (08:39)
[2018-02-05] MEDS: METOCLOPRAMIDE HCL 10 MG TABLET PO SCH (08:40)
[2018-02-05] MEDS: DOCUSATE SODIUM 100 MG CAP PO SCH (08:40)
[2018-02-05] MEDS: INSULIN ASPART 100 UNITS/ML 3 ML PEN SC SCH (08:44)
--- NOTE | 2018-02-05 10:53 | Nephrology Progress Note ---
Date of Service February 05, 2018 Assessment & Plan (1) Acute kidney injury: -- MAGALI - recovery phase. Renal US did not visualize L kidney due to overlying bowel gas. R kidney was negative for hydro and cortical thickness/ echogenicity was unremarkable. Urine culture was negative for infection. Patient reports that he is voiding without difficulty -- Avoid NSAIDs and other potentially nephrotoxic medications -- If discharge is anticipated patient should follow up w/ PCP within 1 week of hospital discharge for monitoring of kidney function and electrolyte balance (baseline creatinine ~ 1.2) (2) Hyponatremia: -- Resolved (3) Squamous cell lung cancer: (4) S/P pneumonectomy: Subjective Mr. Julien was seen & examined in his hospital room this morning. He reports that he is breathing comfortably on RA and voiding without difficulty. He is anxious to return home. Genitourinary (Male): + difficulty urinating Physical Exam 2 Vital Signs (Past 24 Hours): Last Vital Signs Temp 36.5 C 02/05/18 10:28 Pulse 80 02/05/18 10:28 Resp 28 H 02/05/18 10:28 BP 150/74 H 02/05/18 10:28 Pulse Ox 95 02/05/18 10:28 Eyes: PERRL, conjunctivae normal, anicteric sclerae Neck: trachea midline, no thyromegaly Respiratory: normal respiratory effort (CTA on R. Subcutaneous emphysema on L tracking up the neck) Cardiovascular: RRR, no murmur, no edema Extremities: no edema Gastrointestinal (Abdomen): normal bowel sounds, soft, nontender, no hepatosplenomegaly Results & Data Laboratory Results Laboratory Tests 02/04/18 02/05/18 02/05/18 04:18 05:58 05:58 WBC 18.51 H Hgb 9.2 L Hct 28.9 L Plt Count 469 H Sodium 138 Potassium 3.9 Chloride 108 H Carbon Dioxide 22 BUN 34 H Creatinine 1.81 H D Glucose 117 H Albumin 1.9 L
--- NOTE | 2018-02-06 01:48 | Discharge Summary ---
DISCHARGE DIAGNOSES: 1. Squamous cell carcinoma, left lung. 2. Acute renal failure. 3. Hyperglycemia. 4. History of cigarette smoking. HOSPITAL COURSE: Aaron Julien is a very nice 67-year-old male who has a long history of cigarette smoking and had a persistent cough. 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 We worked him up and felt he would be a candidate for resection and on 02/01/2018, I did a mediastinoscopy and biopsied multiple lymph nodes. I saw no evidence of significant disease. He was then turned and we did a limited anterior thoracotomy with latissimus muscle sparing. We performed an uncomplicated left pneumonectomy. He was extubated in the room. He had some subcutaneous emphysema after surgery from the air left in his chest, but quite frankly did well. However, he developed an acute kidney injury and his creatinine jumped from a normal level several weeks prior to surgery to over 3. The creatinine the morning after surgery was 3.16, this peaked that afternoon at 3.79. However, he began making urine and the following morning, it was down to 3.26. On successive days, this dropped to 2.16 and then 1.81 the day of discharge. He was making quite a bit of urine. In addition, his hemoglobin was a bit surprising to me as we lost very little blood during the case, it was 8.9 right after surgery. This dropped to 7.7 and his chest really did not fill up with blood. It came back up to 8.1 on 02/04/2018 and the morning of discharge it was 9.2. His electrolytes looked good. His blood sugars were also high as high as over 300, but this improved and he was down in the low 100s at the time of discharge and I did not send him home on anything for his hyperglycemia. His incision was clean. We did not leave a chest tube. I was quite pleased with his x-ray the morning of discharge. He was discharged home on postoperative day 4. This was a squamous cell carcinoma. We had about a centimeter below the takeoff of the mainstem bronchus which was clear of cancer. Our margins were negative. We harvested 45 lymph nodes of which 5 had disease. These were some N1s, but unfortunately a level 7 node had some microscopic disease. This makes him a T2 N2 M0 or stage IIIA lung carcinoma. I explained this in detail to the patient and his significant other the morning of discharge. He will have to see a medical oncologist to make a decision about treatment. Otherwise, I was quite pleased with him. I gave him my cell phone number and told him to call me this weekend if anything arises. I will see him back in 48 hours with repeat lab work and a chest x-ray.
--- NOTE | 2018-02-09 07:43 | Coding Query ---
CODING QUERY To promote full compliance with coding requirements relating to patient care, provider participation is requested in all cases of coal miner uncertainty. Please assist us with the question(s) below: Please clarify the meaning of MAGALI. MAGALI is not a valid abbreviation. Thank you. ( x ) Acute Kidney Injury ( ) Acute Kidney Insufficiency ( ) Other (Specify): Principal Diagnosis: "that condition established after study, to be chiefly responsible for occasioning the admission of the patient to the hospital for care." Co-Existing Principal Diagnosis: "when two or more diagnoses equally meet the criteria for principal diagnosis as determined by the circumstances of admission , diagnostic work up, and/or therapy provided, and the Alphabetic Index, Tabular List, or another coding guideline does not provide sequencing direction , any one of the diagnoses may be sequenced first." "When the physician has documented what appears to be a current diagnosis in the body of the record, but has not included the diagnosis in the final diagnostic statement, the physician should be asked whether the diagnosis should be added." ([facility] 2 QTR90. p3-4) CODING QUERY To promote full compliance with coding requirements relating to patient care, provider participation is requested in all cases of coal miner uncertainty. Please assist us with the question(s) below: Coding Question(s): Patient s/p pneumonectomy/mediastinoscopy and excision lymph nodes . D/S , progress notes document subcutaneous emphysema postop. Please check below the phrase that describes the subcutaneous emphysema. Thanks for your help! DONAVON Wells [facility] Physician's Response(s): ____x____ The subcutaneous emphysema is an expected postoperative complication The subcutaneous emphysema is not an expected postoperative complication Cannot clinically correlate if the subcutaneous emphysema is a complication Other / please document: _ . Principal Diagnosis: "that condition established after study, to be chiefly responsible for occasioning the admission of the patient to the hospital for care." Co-Existing Principal Diagnosis: "when two or more diagnoses equally meet the criteria for principal diagnosis as determined by the circumstances of admission , diagnostic work up, and/or therapy provided, and the Alphabetic Index, Tabular List, or another coding guideline does not provide sequencing direction , any one of the diagnoses may be sequenced first." "When the physician has documented what appears to be a current diagnosis in the body of the record, but has not included the diagnosis in the final diagnostic statement, the physician should be asked whether the diagnosis should be added." ([facility] QTR90. p3-4) KRISTINA
== END 2018-02-05 10:51 | disposition home or self-care (01) | DRG 164 ==
LOC: ASU 06:11 → 1E 13:58 → 3N 02-04 09:42
DX: E74.39 Other disorders of intestinal carbohydrate absorption; I95.1 Orthostatic hypotension; Z87.891 Personal history of nicotine dependence; C77.1 Secondary and unspecified malignant neoplasm of intrathoracic lymph nodes; K21.9 Gastro-esophageal reflux disease without esophagitis; N17.9 Acute kidney failure, unspecified; J98.11 Atelectasis; J98.2 Interstitial emphysema; E87.1 Hypo-osmolality and hyponatremia; C34.02 Malignant neoplasm of left main bronchus